=== PATIENT | female | born 1960 | race Caucasian/White ===

== ENCOUNTER 2017-07-11 08:40 | Outpatient (CLI) | payer OTHER ==
[2017-07-11] MEDS ORDERED: Iopamidol 370 76% 100 ML VIAL ONE (16:53)
--- NOTE | 2017-07-11 17:27 | CT ---
CT CHEST WITH IV CONTRAST 07/11/17 HISTORY: Chest pain. Dyspnea. FINDINGS: The visualized airways are patent. No parenchymal lung mass, infiltrate, or pleural fluid. Minimal sc arring is present at the lung bases. No evidence of mediastinal adenopathy. Thyroid gland extends to the substernal level with a heterogeneous density. It appears somewhat enlar ged. It measures up to 7.2 cm. IMPRESSION: 1. No significant abnormalities of the chest are demonstrated. 2. Substernal extension of a thyroid goiter. POS: [facility]
== END 2017-07-11 08:41 | disposition home or self-care (01) ==
LOC: RAD-BREN 08:40
DX: R07.89 Other chest pain (principal); E04.9 Nontoxic goiter, unspecified
CPT/HCPCS: 71260

== ENCOUNTER 2018-01-23 08:28 | Outpatient (CLI) | payer OTHER ==
[2018-01-23] MEDS ORDERED: Iopamidol 370 76% 100 ML VIAL ONE (10:08)
--- NOTE | 2018-01-23 10:39 | CT ---
CT ARTERIOGRAM ABDOMEN AND PELVIS WITH IV CONTRAST AND 3D MIP IMAGING: HISTORY: Ischemic colitis. Abdominal pain. COMPARISON: 02/23/15. FINDINGS: There is mild arterial calcification and noncalcified plaque. At the level of the left posterior marck phragmatic crura, a very small extension of contrast into the left aortic plaque has the appearance o f a small ulceration without evidence of complication. Mesenteric and renal arteries are patent. No significant stenosis. Degenerative changes lumbar spine. Gallbladder is surgically absent. Scattered diverticula arise fr om the colon. Circumferential wall thickening of the lower sigmoid colon and rectum without adjacent abnormality. IMPRESSION: 1. Mild atherosclerosis as detailed above. No significant stenosis. Mesenteric arteries are patent . The circumferential mild wall thickening involving the lower sigmoid colon and rectum may represen t the historically stated ischemic colitis. An anatomic cause is not evident. 2. Mild diverticulosis. Findings not suggestive of diverticulitis. POS: [facility]
== END 2018-01-23 08:29 | disposition home or self-care (01) ==
LOC: CT 08:28
PROVIDERS: ATTEND Internal Medicine Gastroenterology
DX: K55.9 Vascular disorder of intestine, unspecified (principal); I70.8 Atherosclerosis of other arteries; K57.30 Diverticulosis of large intestine without perforation or abscess without bleeding
CPT/HCPCS: 74174; 82565